=== PATIENT | female | born 1965 | race Caucasian/White ===

== ENCOUNTER 2019-01-05 06:56 | Day surgery (SDC) ==
[2019-01-05] MEDS ORDERED: LIDOCAINE 1% 20 ML MDV ID STA (07:29)
[2019-01-05 07:50] VITALS: TEMP 97.4
[2019-01-05] MEDS ORDERED: VERSED ONE (09:00)
[2019-01-05] MEDS ORDERED: DIPRIVAN 20 ML VIAL IVP ONE (09:00)
[2019-01-05 10:00] VITALS: BP 111/58
--- NOTE | 2019-01-06 10:23 | OP ---
INDICATIONS FOR PROCEDURE: 53-year-old female presents for colonoscopy exam. She has a history of adenomatous polyps with the last colonoscopy fuur years ago. She recently also had a change of bowel habits with increasing constipation and lower abdominal discomfort. She states her constipation and bowel habits have improved. She still has some crampy discomfort she describes as similar to menstrual cramps. MEDICATIONS: SEE ANESTHESIA NOTES. PROCEDURE: COLONOSCOPY, SNARE POLYPECTOMY. REPORT: The risks, benefits, alternatives and limitations were discussed in detail with the patient. Informed consent was obtained. After adequate sedation was achieved, a digital rectal exam revealed good tone, no masses. The colonoscope was introduced into the rectum and advanced under direct visual guidance to the cecum. The cecum was identified by the appendiceal orifice and IC valve. I then slowly withdrew the scope in a circumferential manner examining the mucosa quite carefully. I looked on the proximal and distal side of folds and flexures as best as possible. I was able to retroflex the scope in the right colon and the left colon to increase visualization. With the scope retroflexed in the right colon, I idenitified a 5 mm semi sessile polyp at the hepatic flexure. I removed this by snare technique. The remaining colon appeared unremarkable including on retroflex view of the anal canal. The prep was good. I noted no diverticuli. The withdrawal time was 14 minutes and 10 seconds. The patient tolerated the procedure well with stable vital signs and pulse oximetry throughout. IMPRESSION: 1. Small polyp successfully removed from the right colon. 2. Otherwise unremarkable colonoscopy exam. RECOMMENDATIONS: 1. Her constipation has improved with increased fiber intake. I reinforced the high fiber diet. 2. Await polyp pathology. If everything is benign as expected, I recommend a surveillance colonoscopy examination again in five years. 3. Since she is still having some vague abdominal discomfort, I have talked to her about pursuing a CT scan. She is now willing to pursue the CT. Will plan a CT scan of the abdomen and pelvis to finalize GI evaluation. 4. If the CT is unremarkable, will see her back in the office as needed. cc: Dr. Rickie PRESCOTT
== END 2019-01-05 10:45 | disposition home or self-care (01) ==
LOC: SURG 06:56
PROVIDERS: ATTEND Internal Medicine Gastroenterology
DX: R19.4 Change in bowel habit (principal); D12.3 Benign neoplasm of transverse colon